=== PATIENT | female | born 1945 | race Caucasian/White ===

== ENCOUNTER 2020-07-04 12:36 | Day surgery (SDC) | payer MEDICARE ==
[~2020-07-04] VITALS: Ht 162.6 cm; Wt 66.3 kg
[~2020-07-04 12:36] MED LIST: ALBU3IS INH; ALBU90I INH; ALBU90OI INH; ALBU90OI6 INH; ALLO100 PO; ALPR.25 PO; AMOCLA875 PO; ANORO ELLIPTA1 EAC1 INH; ASPI325 PO; ASPI81EC; ATROVENT HFA12.9 GM; CHOLESTEROL MED; EPIPEN 2-P0.3 MG/0.1 IM; ESOM20 PO; EZET10; FLUSAL2505 INH; FURO40; FURO40 PO; HYDURE500 PO; LISI5 PO; METF500C PO; METO100ER; METO100ER PO; METO25ER; NITROGLYCERIN0.4 M1 SL; OMEG1CAP30 PO; POTCHL20ER PO; Percocet 5-3251 EACH PO; ROSU10TA; ROSU10TA PO; ROSU5 PO; RXONDA4ODT MM; RXOXYACE PO; SIMV40 PO; SPIR25; SPIR25 PO; TIOT18 IH; VALS80
--- NOTE | 2020-07-04 14:57 | NUR ---
07/04/20 1457 ALMA BARTLETT 24 ML NACL USED FOR INJECTION OF POLYP
== END 2020-07-04 14:38 | disposition home or self-care (01) ==
LOC: ORSCSDS 12:36
PROVIDERS: Surgery
PROC: 0DBL8ZX Excision of Transverse Colon, Via Natural or Artificial Opening Endoscopic, Diagnostic (ICD-10-PCS; principal; 2020-07-04 13:45)
PROC: 3E0H8GC Introduction of Other Therapeutic Substance into Lower GI, Via Natural or Artificial Opening Endoscopic (ICD-10-PCS; principal; 2020-07-04 13:45)
DX: Z12.11 Encounter for screening for malignant neoplasm of colon (principal); D12.3 Benign neoplasm of transverse colon; K57.30 Diverticulosis of large intestine without perforation or abscess without bleeding; K64.8 Other hemorrhoids; F17.210 Nicotine dependence, cigarettes, uncomplicated; E78.5 Hyperlipidemia, unspecified; K21.9 Gastro-esophageal reflux disease without esophagitis; I25.10 Atherosclerotic heart disease of native coronary artery without angina pectoris; I10 Essential (primary) hypertension; J44.9 Chronic obstructive pulmonary disease, unspecified; Z79.899 Other long term (current) drug therapy
CPT/HCPCS: 88305; J2704; J7120

== ENCOUNTER 2021-01-19 08:03 | Day surgery (SDC) | payer MEDICARE | END 2021-01-19 23:52 | disposition home or self-care (01) | LOC: MOI US 08:03 → MOI MAM 08:45 → MOI US 23:52 | DX: N64.89 Other specified disorders of breast (principal) | CPT/HCPCS: 19083; 77065; 88305; A4648; G0279 ==

== ENCOUNTER 2023-03-27 10:34 | Emergency (ER) | payer MEDICARE ==
[~2023-03-27] VITALS: Ht 162.6 cm; Wt 54.4 kg
[2023-03-27 11:34] LABS: BASOPHILS ABSOLUTE AUTO 0.06 K/mm3 (0.00-0.23); BASOPHILS PERCENT AUTO 1 % (0-2); EOSINOPHILS ABSOLUTE AUTO 0.01 K/mm3 (0.00-0.68); EOSINOPHILS PERCENT AUTO 0 % (0-6); Hematocrit 35.2 % (33.0-51.0); Hemoglobin 12.1 g/dL (11.5-16.0); IMMATURE GRAN ABSOLUTE AUTO 0.05 K/mm3 (0.00-0.10); IMMATURE GRAN PERCENT AUTO 1 % (0-1); LYMPHOCYTES PERCENT AUTO 17 % (21-46); MONOCYTES ABSOLUTE AUTO 0.45 K/mm3 (0.16-1.47); MONOCYTES PERCENT AUTO 6 % (4-13); Mean Corpuscular HGB 40.7 pg (26.0-34.0); Mean Corpuscular HGB Conc 34.4 g/dL (31.5-36.5); Mean Corpuscular Volume 119 fL (80-100); Mean Platelet Volume 8.1 fL (9.1-12.4); NEUTROPHILS ABSOLUTE AUTO 5.36 K/mm3 (1.96-9.15); NEUTROPHILS PERCENT AUTO 75 % (41-73); Platelet Count 379 K/mm3 (150-400); RDW Coefficient Variation 13.9 % (11.7-14.2); RDW Standard Deviation 60.8 fL (35.1-46.3); Red Blood Cell Count 2.97 M/mm3 (3.80-5.20); White Blood Cell Count 7.13 K/mm3 (4.00-11.30)
[2023-03-27 11:56] LABS: Albumin, Blood 1.8 g/dL (3.4-5.0); Albumin/Globulin Ratio 0.4 (0.8-1.8); Bilirubin, Total 0.7 mg/dL (0.1-1.0); Bun/Creatinine Ratio 13.4 (12.0-20.0); Calcium, Blood 8.3 mg/dL (8.5-10.1); Creatinine, Blood 0.67 mg/dL (0.40-1.00); Globulin, Blood 4.7 g/dL (2.2-4.0); Potassium, Blood 2.9 mmol/L (3.5-5.5); Total Protein, Blood 6.5 g/dL (6.4-8.2)
[2023-03-27 14:38] LABS: Source, Urine Clean Catch
[2023-03-27 14:53] LABS: Appearance, Urine Clear (Clear); Bilirubin, Urine Neg (Neg); Blood, Urine Neg (Neg); Color, Urine Amber (P-Yellow); Glucose Qualitative, Urine Neg (Neg); Ketones, Urine Neg (Neg); Leukocyte Esterase, Urine 1+ (Neg); Nitrite, Urine Neg (Neg); Protein, Urine 1+ (Neg); Urobilinogen, Urine 1+ (Normal)
[2023-03-27 15:08] LABS: Bacteria Few /hpf; Red Blood Cells, Urine 0-2 /hpf (0-2); Squamous Epithelial Cells Few /hpf (Few)
[2023-03-27 16:30] VITALS: BP 134/119
[2023-03-27] MEDS ORDERED: ONDA4ODT SL (19:42)
[2023-03-27 22:36] LABS: Adenovirus F 40/41 Not Detected (NOT DETECT); Astrovirus Not Detected (NOT DETECT); Campylobacter Sp Not Detected (NOT DETECT); Cryptosporidium Not Detected (NOT DETECT); Cyclospora Cayetanensis Not Detected (NOT DETECT); E. Coli O157 Not Detected (NOT DETECT); Entamoeba Histolytica Not Detected (NOT DETECT); Enteroaggregative E. coli-EAEC Not Detected (NOT DETECT); Enteropathogenic E. coli-EPEC Not Detected (NOT DETECT); Enterotoxigenic E. coli-ETEC Not Detected (NOT DETECT); Giardia Lamblia Not Detected (NOT DETECT); Norovirus GI/GII Not Detected (NOT DETECT); Plesiomonas Shigelloides Not Detected (NOT DETECT); Rotavirus A Not Detected (NOT DETECT); Salmonella Sp Not Detected (NOT DETECT); Sapovirus Not Detected (NOT DETECT); Shiga Toxin-prod E. coli-STEC Not Detected (NOT DETECT); Shigella/Enteroin E. coli-EIEC Not Detected (NOT DETECT); Vibrio Cholerae Not Detected (NOT DETECT); Vibrio Sp Not Detected (NOT DETECT); Yersinia Enterocolitica Not Detected (NOT DETECT)
== END 2023-03-27 19:50 | disposition home or self-care (01) ==
LOC: ER 10:34
PROVIDERS: Emergency Medicine; Physician Assistant
DX: R10.11 Right upper quadrant pain (principal); E87.6 Hypokalemia; E46 Unspecified protein-calorie malnutrition; E88.09 Other disorders of plasma-protein metabolism, not elsewhere classified; R19.7 Diarrhea, unspecified; I11.0 Hypertensive heart disease with heart failure; I50.9 Heart failure, unspecified; F17.200 Nicotine dependence, unspecified, uncomplicated; Z88.1 Allergy status to other antibiotic agents; Z91.040 Latex allergy status; Z88.5 Allergy status to narcotic agent; Z88.8 Allergy status to other drugs, medicaments and biological substances; Z91.048 Other nonmedicinal substance allergy status; Z79.899 Other long term (current) drug therapy; Z79.82 Long term (current) use of aspirin
CPT/HCPCS: 74177; 80053; 81001; 83690; 85025; 87086; 87324; 87507; 96361; 96374-59; 99284-25; A9270; J7120; Q9967

== ENCOUNTER 2023-04-29 17:21 | Inpatient (IN) | payer MEDICARE ==
[~2023-04-29] VITALS: Ht 162.6 cm; Wt 51.6 kg
[~2023-04-29 17:21] MED LIST changes: +ONDA4ODT SL
[2023-04-29 18:10] LABS: BASOPHILS ABSOLUTE AUTO 0.04 K/mm3 (0.00-0.23); BASOPHILS PERCENT AUTO 1 % (0-2); EOSINOPHILS ABSOLUTE AUTO 0.03 K/mm3 (0.00-0.68); EOSINOPHILS PERCENT AUTO 1 % (0-6); Hematocrit 29.3 % (33.0-51.0); Hemoglobin 9.7 g/dL (11.5-16.0); IMMATURE GRAN ABSOLUTE AUTO 0.02 K/mm3 (0.00-0.10); IMMATURE GRAN PERCENT AUTO 1 % (0-1); LYMPHOCYTES ABSOLUTE AUTO 1.77 K/mm3 (0.84-5.20); LYMPHOCYTES PERCENT AUTO 44 % (21-46); MONOCYTES ABSOLUTE AUTO 0.45 K/mm3 (0.16-1.47); MONOCYTES PERCENT AUTO 11 % (4-13); Mean Corpuscular HGB 41.5 pg (26.0-34.0); Mean Corpuscular HGB Conc 33.1 g/dL (31.5-36.5); Mean Corpuscular Volume 125 fL (80-100); Mean Platelet Volume 8.7 fL (9.1-12.4); NEUTROPHILS ABSOLUTE AUTO 1.73 K/mm3 (1.96-9.15); NEUTROPHILS PERCENT AUTO 43 % (41-73); Platelet Count 375 K/mm3 (150-400); RDW Coefficient Variation 17.2 % (11.7-14.2); RDW Standard Deviation 78.2 fL (35.1-46.3); Red Blood Cell Count 2.34 M/mm3 (3.80-5.20); White Blood Cell Count 4.04 K/mm3 (4.00-11.30)
[2023-04-29 18:33] LABS: Albumin, Blood 2.2 g/dL (3.4-5.0); Albumin/Globulin Ratio 0.5 (0.8-1.8); Bilirubin, Total 0.4 mg/dL (0.1-1.0); Creatinine, Blood 0.66 mg/dL (0.40-1.00); Globulin, Blood 4.6 g/dL (2.2-4.0); Potassium, Blood 3.7 mmol/L (3.5-5.5); Total Protein, Blood 6.8 g/dL (6.4-8.2)
[2023-04-29] MEDS ORDERED: OMEP20ER PO (18:47)
[2023-04-30 00:20] LABS: International Normalized Ratio 1.04; Prothrombin Time Results 10.9 Sec (9.7-11.5)
[2023-04-30 03:10] VITALS: BP 123/84
--- NOTE | 2023-04-30 06:46 | NUR ---
SHIFT SUMMARY/ARRIVAL TO PCU NOTE RECEIVED REPORT FROM HEAD OF ACQUISITIONS SERENE ALMEIDA, PT SHORTLY ARRIVED TO PCU 3 ~0300 THIS AM. ACCOMPANIED BY PT'S SON-IN-LAW, PT WAS ABLE TO TRANSFER FROM ER [facility] [place] TO PCU BED WITH MINIMAL ASSISTANCE. A/Ox3 AND COOPERATIVE WITH CARE. CAN BE FORGETFUL AT TIMES, BUT IS ABLE TO ANSWER QUESTIONS APPROPRIATELY. CARDIAC, REMAINED IN SR-ST 80-100'S WITH NO C/O CP OR PRESSURE T/O THE NIGHT. SBP HAS BEEN STABLE RANGING 100-120'S. DENIES DIZZINESS WITH AMBULATION. RESPIRATORY, MAINTAINS SPO2 >95% ON RA WITH NO C/O SOB WHILE AT REST. MILD DYSPNEA NOTED WITH EXERTION, BUT PT RECOVERS WELL. GI/, ABLE TO AMBULATE TO [facility], VOIDING CLEAR/YELLOW URINE. NO BM SINCE ARRIVAL TO PCU. STOOL SAMPLE AWAITING TO BE COLLECTED. BS PRESENT IN ALL QUADRANTS WITH NO C/O ABD TENDERNESS. HEPARIN gtt IS BEING MANAGED BY PHARMACY AND HAS BEEN INFUSING ORDERED VIA EMAR. IR CONSULT CONDUCTED, ANSWERSING SERVICE NOTIFIED PER ORDERS. ASSESSED PT FOR RISKS OF ANY IGNITION SOURCES WELL BEHAVIORS FOR INCREASED RISKS OF FIRE DANGER. PT EDUCATED ON COMMON SOURCES OF IGNITION WELL NEED TO KEEP A SAFE ENVIRONMENT. PT VOICED UNDERSTANDING. NO NEW ORDERS AT THIS TIME, WILL REPORT TO ONCOMING RN. BRANDEN POST OF THIS NOTE.
[2023-04-30 07:30] VITALS: BP 119/77
[2023-04-30 09:10] LABS: Stool Occult Blood Guaiac 1 Neg (Neg)
[2023-04-30 09:27] LABS: Hemoglobin 8.7 g/dL (11.5-16.0); Mean Corpuscular HGB 41.2 pg (26.0-34.0); Mean Corpuscular HGB Conc 32.2 g/dL (31.5-36.5); Mean Corpuscular Volume 128 fL (80-100); Mean Platelet Volume 8.9 fL (9.1-12.4); Platelet Count 380 K/mm3 (150-400); RDW Coefficient Variation 17.6 % (11.7-14.2); RDW Standard Deviation 81.9 fL (35.1-46.3); Red Blood Cell Count 2.11 M/mm3 (3.80-5.20); White Blood Cell Count 2.89 K/mm3 (4.00-11.30)
[2023-04-30 09:47] LABS: BAND PERCENT MAN 2 % (0-8); BASOPHILS PERCENT MAN 0 % (0-2); EOSINOPHILS ABSOLUTE MAN 0.02 K/mm3 (0.00-0.68); EOSINOPHILS PERCENT MAN 1 % (0-6); LYMPHOCYTES ABSOLUTE MAN 1.24 K/mm3 (0.84-5.20); LYMPHOCYTES PERCENT MAN 43 % (21-46); METAMYELOCYTE ABSOLUTE MAN 0.02 K/mm3 (0.00-0.00); METAMYELOCYTE PERCENT MAN 1 % (0-0); MONOCYTES PERCENT MAN 7 % (4-13); NEUTROPHILS ABSOLUTE MAN 1.38 K/mm3 (1.96-9.15); SEG NEUTROPHILS PERCENT MAN 46 % (41-73); TOTAL CELLS COUNTED 100
[2023-04-30 09:58] LABS: Albumin, Blood 1.9 g/dL (3.4-5.0); Albumin/Globulin Ratio 0.5 (0.8-1.8); Bilirubin, Total 0.2 mg/dL (0.1-1.0); Bun/Creatinine Ratio 6.6 (12.0-20.0); Calcium, Blood 7.9 mg/dL (8.5-10.1); Creatinine, Blood 0.6 mg/dL (0.40-1.00); Globulin, Blood 4.1 g/dL (2.2-4.0); Potassium, Blood 3.2 mmol/L (3.5-5.5)
[2023-04-30 10:44] VITALS: BP 105/69
[2023-04-30 11:24] LABS: Adenovirus F 40/41 Not Detected (NOT DETECT); Astrovirus Not Detected (NOT DETECT); Campylobacter Sp Not Detected (NOT DETECT); Cryptosporidium Not Detected (NOT DETECT); Cyclospora Cayetanensis Not Detected (NOT DETECT); E. Coli O157 Not Detected (NOT DETECT); Entamoeba Histolytica Not Detected (NOT DETECT); Enteroaggregative E. coli-EAEC Not Detected (NOT DETECT); Enteropathogenic E. coli-EPEC Not Detected (NOT DETECT); Enterotoxigenic E. coli-ETEC Not Detected (NOT DETECT); Giardia Lamblia Not Detected (NOT DETECT); Norovirus GI/GII Not Detected (NOT DETECT); Plesiomonas Shigelloides Not Detected (NOT DETECT); Rotavirus A Not Detected (NOT DETECT); Salmonella Sp Not Detected (NOT DETECT); Sapovirus Not Detected (NOT DETECT); Shiga Toxin-prod E. coli-STEC Not Detected (NOT DETECT); Shigella/Enteroin E. coli-EIEC Not Detected (NOT DETECT); Vibrio Cholerae Not Detected (NOT DETECT); Vibrio Sp Not Detected (NOT DETECT); Yersinia Enterocolitica Not Detected (NOT DETECT)
--- NOTE | 2023-04-30 11:39 | NUR ---
NOTED C DIFF POSITIVE. DR. PASCUAL HERE TO CONSENT PT FOR PROCEDURE. NPO FROM NOW.
[2023-04-30 15:52] LABS: Hematocrit 27.5 % (33.0-51.0); Hemoglobin 9.1 g/dL (11.5-16.0)
[2023-04-30 16:05] VITALS: BP 112/60
--- NOTE | 2023-04-30 16:07 | NUR ---
Call to son-in-law Justus to update family that the pt's procedure will probably be at 1830 this evening.
--- NOTE | 2023-04-30 18:24 | NUR ---
Pt returned to the room via bed from [facility]. She is alert, oriented to person, place, and some ongoing events. Appropriate in conversation, but also somewhat forgetful. Bilateral popliteal venous access sites noted to be without bleeding nor swelling nor bruising. Flowstasis devices are present bilaterally. Per Dr. Peterson, they can be removed in the morning. Assisted to use the bed [place] to void and to eat her dinner. Pharmacy was notified of pt's return to room and heparin gtt restarted at the prior rate, per pharmacist at this time. Pt has no c/o pain nor discomfort. She is eating with good appetite. Vital signs are stable. Family member Justus was notified by phone.
--- NOTE | 2023-04-30 21:25 | NUR ---
AT SHIFT CHANGE WHEN MEETING PATIENT, SHE WAS PLEASANT AND COOPERATIVE BUT FORGETFUL. SHE WAS UNAWARE THAT SHE WAS SPENDING THE NIGHT IN THE HOSPITAL. BED ALARM WAS PLACED FOR SAFETY. AROUND 193 PATIENT SET OFF BED ALARM TRYING TO GET OUT OF BED TO USE THE BATHROOM AND WAS PULLING AT HER IV'S AND TELEMETRY. EXPLAINED TO THE PATIENT THAT IT IS UNSAFE FOR HER TO BE GETTING UP WITHOUT HELP AND ATTEMPTED TO ASSIST HER TO THE BEDSIDE COMMODE. PATIENT SAT ON THE COMMODE AND THEN ATTEMPTED TO WALK TOWARDS THE DOOR. EXPLAINED TO THE PATIENT AGAIN THAT IT IS DANGEROUS FOR HER TO WALK SHE HAD JUST HAD A PROCEDURE AND HAD DEVICES ON HER LEGS TO KEEP HER FROM BLEEDING. PATIENT CONTINUED STARTED YELLING AND STARTED TRYING TO LEAVE. THIS RN CALLED FOR ASSISTANCE. PATIENT AGREED TO SIT ON THE SIDE OF THE BED BUT INSISTING THAT SHE WANTS TO GO HOME. PATIENT DOES NOT BELIEVE THAT SHE IS IN THE HOSPITAL BUT DOESN'T KNOW WHERE SHE IS. FINISH OFF OPERATOR, AND NURSING LEGAL PROCESS SPECIALIST ALSO SPOKE WITH THE PATIENT. HELPED THE PATIENT TO CALL HER FAMILY AND HER SON IN LAW AGREED TO COME SEE THE PATIENT. CONTACTED REGULATORY AUDITOR RESIDENT, DR MCMAHON, TO NOTIFY HER OF THE SITUATION AND ASKED HER FOR SOMETHING TO HELP THE PATIENT CALM DOWN. NO ORDERS GIVEN. HELPED THE PATIENT TO USE THE COMMODE, PATIENT INSISTED ON GETTING DRESSED AND TOOK HER TELEMETRY OFF REFUSING TO WAIT FOR HER SON IN LAW TO COME. PATIENT'S SON IN LAW ARRIVED AROUND 2100 TO HELP CALM THE PATIENT DOWN. PATIENT DID NOT BELIEVE ANYTHING HE WAS SAYING. TRYING TO PULL AT IV'S. FINISH OFF OPERATORPLACIDO CALLED DR MCMAHON AGAIN EXPLAINING HOW THE SITUATION WAS UNSAFE AND AGAIN ASKED FOR SOMETHING TO HELP THE PATIENT CALM DOWN.
[2023-04-30 21:46] VITALS: BP 111/57
--- NOTE | 2023-04-30 22:35 | NUR ---
PHYSICIAN COMMUNICATION CONTACTED MEDICAL TYPIST RESIDENT, DR MCMAHON, TO NOTIFY HER THAT THE PATEINT HAS LAID BACK DOWN AND IS CURRENTLY RESTING BUT STILL REFUSING TO ALLOW THIS RN TO PLACE TELEMETRY BACK ON THE PATIENT. ALSO NOTIFIED HER THAT THE PATIENT'S SON IN LAW SAID THAT THE PATIENT WOUD NOT BE WILLING TO TAKE ORAL MEDICATIONS AT THIS TIME AND IS AFRAID THAT THE PATIENT WILL WAKE UP MORE CONFUSED AND COMBATIVE THE PATIENT HAS BEEN "SPEAKING AGRESSIVELY TO HIM" AND REQUESTED THAT THE PATIENT BE SWITCHED FROM AN ORAL MEDICATION THAT WILL HELP HER STAY CALM AND SLEEP THROUGH THE NIGHT TO SOMETHING IV.
[2023-04-30 23:43] VITALS: BP 130/81
[2023-05-01 01:30] LABS: BASOPHILS ABSOLUTE AUTO 0.04 K/mm3 (0.00-0.23); BASOPHILS PERCENT AUTO 1 % (0-2); EOSINOPHILS ABSOLUTE AUTO 0.02 K/mm3 (0.00-0.68); EOSINOPHILS PERCENT AUTO 1 % (0-6); Hematocrit 27.6 % (33.0-51.0); IMMATURE GRAN ABSOLUTE AUTO 0.03 K/mm3 (0.00-0.10); IMMATURE GRAN PERCENT AUTO 1 % (0-1); LYMPHOCYTES ABSOLUTE AUTO 1.24 K/mm3 (0.84-5.20); LYMPHOCYTES PERCENT AUTO 31 % (21-46); MONOCYTES ABSOLUTE AUTO 0.44 K/mm3 (0.16-1.47); MONOCYTES PERCENT AUTO 11 % (4-13); Mean Corpuscular HGB 42.3 pg (26.0-34.0); Mean Corpuscular HGB Conc 32.6 g/dL (31.5-36.5); Mean Corpuscular Volume 130 fL (80-100); Mean Platelet Volume 8.9 fL (9.1-12.4); NEUTROPHILS ABSOLUTE AUTO 2.24 K/mm3 (1.96-9.15); NEUTROPHILS PERCENT AUTO 56 % (41-73); Platelet Count 350 K/mm3 (150-400); RDW Coefficient Variation 17.2 % (11.7-14.2); RDW Standard Deviation 82.3 fL (35.1-46.3); Red Blood Cell Count 2.13 M/mm3 (3.80-5.20); White Blood Cell Count 4.01 K/mm3 (4.00-11.30)
[2023-05-01 01:53] LABS: Albumin/Globulin Ratio 0.5 (0.8-1.8); Bilirubin, Total 0.3 mg/dL (0.1-1.0); Bun/Creatinine Ratio 8.4 (12.0-20.0); Calcium, Blood 8.3 mg/dL (8.5-10.1); Creatinine, Blood 0.71 mg/dL (0.40-1.00); Magnesium, Blood 1.7 mg/dL (1.6-2.4); Phosphorus, Blood 2.9 mg/dL (2.5-4.9); Potassium, Blood 3.5 mmol/L (3.5-5.5)
[2023-05-01 03:21] VITALS: BP 126/75
--- NOTE | 2023-05-01 03:52 | NUR ---
PHYSICIAN COMMUNICATION CONTACTED NUTRITION AIDES TEACHER RESIDENT, DR MCMAHON, AT 2300 TO NOTIFY HER THAT THE PATIENT HAD WOKEN UP AND WAS COMBATIVE AND ATTEMPTING TO PULL HER IV OUT/RIP THE TUBING APART DESPITE RECEIVING A DOSE OF IM ZYPREXA. DR MCMAHON APPROVED THE USE OF WRIST RESTRAINTS. CALLED DR MCMAHON AGAIN AT 0350 TO NOTIFY HER THAT THE PATIENT WAS NO LONGER ACTING AGRESSIVELY BUT STILL REQUIRING ALMOST CONSTANT SUPERVISION DESPITE BEING IN WRIST RESTRAINTS BECAUSE THE PATIENT WILL NOT LEAVE HER LEGS IN BED AND THAT THE PATIENT MANAGED TO PULL THE FLOW STASIS DEVICE OFF HER LEFT LEG AND THAT FORTUNATELY IT WAS STILL CONNECTED TO THE STRINGS AND WAS ABLE TO BE REPLACED TO APPLY PRESSURE AND A NEW DRESSIGN WAS PLACED OVER IT. ASKED DR MCMAHON IF THE PATIENT COULD BE PLACED IN FOUR POINT RESTRAINTS OR BE SEDATED. DR MCMAHON SAID SHE WOULD CONSULT WITH DR GOEL AND INPUT ORDERS.
--- NOTE | 2023-05-01 05:49 | NUR ---
PHYSICIAN COMMUNICATION CONTACTED DINKEY ENGINE FIRER/FIREMAN RESIDENT, DR MCMAHON, TO NOTIFY HER THAT THE LAST DOSE OF ZYPREXA THAT WAS ADMINISTERED TO THE PATIENT WAS NOT EFFECTIVE AND THAT THIS RN WITNESSED THE PATIENT PULL HER LEFT LEG UP AND TWIST HER UPPER BODY IN ORDER TO REACH DOWN AND INTENTIONALLY PULL THE DRESSING OVER HER VENOUS STASIS DEVICE OFF. DR MCMAHON OKAYED 4 POINT SOFT RESTRAINTS.
[2023-05-01 08:16] VITALS: BP 125/75
--- NOTE | 2023-05-01 08:38 | NUR ---
0700 Bedside report received from LAXMI Golden. Noted some bruising proximal and distal to the left popliteal space, no swelling. Pt also has some tenderness at the area. No active bleeding. Flostasis devices removed without any difficulty, and the area was cleansed with chlorihexidine and gauze dressing applied and secured with coban.
--- NOTE | 2023-05-01 09:06 | NUR ---
Assisted with IV pole to ambulate to the bathroom for BM after breakfast. No difficulty with the activity. She is oriented to person, place, and following directions. She is still confused somewhat, continues to think that she was in the hospital for an eye operation, and forgetful of events over the past 48 hours. She is cooperative. Bed alarm is on and son in law Justus at the bedside.
--- NOTE | 2023-05-01 12:38 | NUR ---
Ongoing confusion. Pt is frequently setting off the chair alarm. She continues to think that she is in the eye doctor's office and needs to go home, or needs to get to the hospital, despite frequent reminders and reorientation.
--- NOTE | 2023-05-01 14:49 | NUR ---
Spoke with Primary RN Tatyana and discussed case. Pt remains confused. Son was at bedside all night and has left. Pt sitting in chair upon arrival. Pt A&OX2. Pt pleasantly confused and engages in same story over and over again each time adding a slightly different element to the story. Difficult to have therapeutic conversation and needs redirecting. Continued supportive visit. Palliative Care will remain available
--- NOTE | 2023-05-01 15:43 | NUR ---
Pt repeatedly standing up in the room alerted staff with chair alarm. Insistent that she needs to go home. Attempts to reassure and reorient are unsuccessful. She insisted on calling her son in law Justus, but is still insistent that she must go home. Attempting to leave the room without using the walker and at times wobbly on her feet. Refusing to stay in room, or sit in wheelchair or use the walker. She did walk with direct support staff member member in the hallway around by ICU, and then returned to PCU. Dr. Salas in unit, talked with her. She insists that she needs to go home. Remains quite confused, and states she isn't willing to take any medications. New prn orders received for agitation/combativeness.
--- NOTE | 2023-05-01 16:27 | NUR ---
Pt is sitting in wheelchair in hallway, refusing to go back to her room. Supervised by PCT at this time.
--- NOTE | 2023-05-01 17:17 | NUR ---
Telephone report given to LAXMI Ledbetter. Pt was agreeable to take her Vancomycin, eliquis, and zyprexa at this time. She wa taken up to room 348 by wheelchair.
[2023-05-01 17:26] VITALS: BP 127/47
--- NOTE | 2023-05-01 18:40 | NUR ---
SHIFT SUMMARY; PATIENT ARRIVED TO MED FLOOR VIA WHEEL CHAIR AT 1715. PLEASANT AFFECT. CONVERSES WITH STAFF. VERY COOPERATIVE WITH CARE. UP TO BATHROOM WITHOUT ASSIST. PATIENT REMINDED TO USE CALL LIGHT TO NOTIFY STAFF OF HER NEEDS INCLUDING GOING TO BATHROOM. PHONE CALL TO HER NELI AMAYA PRIOR TO THIS RN LEAVING UNIT AT END OF SHIFT.
[2023-05-01 20:09] VITALS: BP 105/65
--- NOTE | 2023-05-01 22:24 | NUR ---
REPORT RECEIVED VERIFIED PT A/O X 1-2 CAN BE REDIRECTED EASILY BUT WILL NOT REST NOR SIT DOWN, PT STEADY ON FEET WHEN STAND BY ASSIST,PT HAD BM LOOKED NORMAL NO BLOOD NOTED. ENC TO REST AND LAY IN BED. @2130 PT IN SEPARATE ROOM ALARM WENT OFF AND WAS ASSISTING TO BED WHEN SECOND ALARM WENT OFF IN CURRENT PT ROOM. PT FELL WHILE ATTEMPTING TO GO IN BATHROOM NO OBVIOUS INJURY NOTE, PT STATED SHE WAS FINE BUT WOULD PROBABLY BE SORE IN THE MORNING. I AMBULATED WITH PT IN ROOM AND SAW NOT S/S OF INJURY. ASSISTED PT BACK IN BED AND PT STATES SHE WOULD NOT GET OOB WITHOUT HELP. BED ALARM IN PLACE, PT LAYING QUIETLY IN BED
[2023-05-01 23:26] VITALS: BP 105/65
[2023-05-02 00:06] VITALS: BP 103/58
--- NOTE | 2023-05-02 02:17 | NUR ---
@0120 PT ATTEMPTED TO GET OUT OF BED, WHEN ALARM SOUNDED PT SCREAMED AND SEEMED TO GET TRIGGERED INTO [place]. PT GREW AGGRESSIVE AND SCREAMED OUT FOR FAMILY AND WOULDNT STOP YELLING. PT WAS ENC TO RETURN TO BED WITHOUT BUT MET RESISTENCE. TO PROTECT PT WE CARFULLY HELPED HER TO THE BED ALL THE TIME SHE WAS SCREAMING AND HITTING AND BAUDILIO WAS APPLIED, HALDOL WAS THEN GIVEN TO CALM PT. WILL CONT TO MONITOR PT AT BEDSIDE
[2023-05-02 05:21] VITALS: BP 140/75
--- NOTE | 2023-05-02 05:36 | NUR ---
AFTER STRUGGLING FOR SEVERAL HOURS PT FINALLY ASLEEP VITAL SIGNS COULD BE DONT ALL WNL. HAD BM NO BLEEDING NOTED LINEN CHANGED PT PRATEEK WELL STILL SLEEPING
--- NOTE | 2023-05-02 07:29 | NUR ---
PT BETTER APOLOGIZED FOR BEHAVIOR, ASSISTED TO [facility] WHERE SHE HADF A SOFT BM NO BLOOD NOTED, BAUDILIO TIDE TO BED
[2023-05-02 08:23] VITALS: BP 117/61
[2023-05-02 08:31] LABS: BASOPHILS ABSOLUTE AUTO 0.04 K/mm3 (0.00-0.23); BASOPHILS PERCENT AUTO 1 % (0-2); EOSINOPHILS ABSOLUTE AUTO 0.02 K/mm3 (0.00-0.68); EOSINOPHILS PERCENT AUTO 1 % (0-6); Hemoglobin 7.4 g/dL (11.5-16.0); IMMATURE GRAN ABSOLUTE AUTO 0.02 K/mm3 (0.00-0.10); IMMATURE GRAN PERCENT AUTO 1 % (0-1); LYMPHOCYTES ABSOLUTE AUTO 1.02 K/mm3 (0.84-5.20); LYMPHOCYTES PERCENT AUTO 26 % (21-46); MONOCYTES ABSOLUTE AUTO 0.48 K/mm3 (0.16-1.47); MONOCYTES PERCENT AUTO 12 % (4-13); Mean Corpuscular HGB 41.3 pg (26.0-34.0); Mean Corpuscular HGB Conc 32.2 g/dL (31.5-36.5); Mean Corpuscular Volume 129 fL (80-100); Mean Platelet Volume 8.8 fL (9.1-12.4); NEUTROPHILS ABSOLUTE AUTO 2.29 K/mm3 (1.96-9.15); NEUTROPHILS PERCENT AUTO 59 % (41-73); Platelet Count 249 K/mm3 (150-400); RDW Coefficient Variation 18.2 % (11.7-14.2); RDW Standard Deviation 84.3 fL (35.1-46.3); Red Blood Cell Count 1.79 M/mm3 (3.80-5.20); White Blood Cell Count 3.87 K/mm3 (4.00-11.30)
[2023-05-02 09:07] LABS: Albumin, Blood 1.9 g/dL (3.4-5.0); Anion Gap 2 mmol/L (6-16); Blood Urea Nitrogen 6 mg/dL (8-24); Bun/Creatinine Ratio 7.5 (12.0-20.0); CO2, Blood 27 mmol/L (21-32); Calcium, Blood 8.1 mg/dL (8.5-10.1); Chloride, Blood 113 mmol/L (98-108); Glomerular Filtration Rate 75 (60-); Glucose, Blood 108 mg/dL (70-99); Magnesium, Blood 2.3 mg/dL (1.6-2.4); Potassium, Blood 3.7 mmol/L (3.5-5.5); Sodium, Blood 142 mmol/L (136-145)
[2023-05-02 11:47] LABS: BASOPHILS ABSOLUTE AUTO 0.03 K/mm3 (0.00-0.23); BASOPHILS PERCENT AUTO 1 % (0-2); EOSINOPHILS ABSOLUTE AUTO 0.05 K/mm3 (0.00-0.68); EOSINOPHILS PERCENT AUTO 1 % (0-6); Hematocrit 26.3 % (33.0-51.0); Hemoglobin 8.5 g/dL (11.5-16.0); IMMATURE GRAN ABSOLUTE AUTO 0.02 K/mm3 (0.00-0.10); IMMATURE GRAN PERCENT AUTO 1 % (0-1); LYMPHOCYTES ABSOLUTE AUTO 1.25 K/mm3 (0.84-5.20); LYMPHOCYTES PERCENT AUTO 33 % (21-46); MONOCYTES ABSOLUTE AUTO 0.56 K/mm3 (0.16-1.47); MONOCYTES PERCENT AUTO 15 % (4-13); Mean Corpuscular HGB 41.7 pg (26.0-34.0); Mean Corpuscular HGB Conc 32.3 g/dL (31.5-36.5); Mean Corpuscular Volume 129 fL (80-100); NEUTROPHILS ABSOLUTE AUTO 1.83 K/mm3 (1.96-9.15); NEUTROPHILS PERCENT AUTO 49 % (41-73); Platelet Count 318 K/mm3 (150-400); RDW Coefficient Variation 18.4 % (11.7-14.2); RDW Standard Deviation 87.1 fL (35.1-46.3); Red Blood Cell Count 2.04 M/mm3 (3.80-5.20); White Blood Cell Count 3.74 K/mm3 (4.00-11.30)
[2023-05-02 12:59] LABS: BAND PERCENT MAN 2 % (0-8); BASOPHILS PERCENT MAN 0 % (0-2); EOSINOPHILS ABSOLUTE MAN 0.03 K/mm3 (0.00-0.68); EOSINOPHILS PERCENT MAN 1 % (0-6); LYMPHOCYTES ABSOLUTE MAN 1.12 K/mm3 (0.84-5.20); LYMPHOCYTES PERCENT MAN 30 % (21-46); METAMYELOCYTE ABSOLUTE MAN 0.07 K/mm3 (0.00-0.00); METAMYELOCYTE PERCENT MAN 2 % (0-0); MONOCYTES ABSOLUTE MAN 0.18 K/mm3 (0.16-1.47); MONOCYTES PERCENT MAN 5 % (4-13); NEUTROPHILS ABSOLUTE MAN 2.31 K/mm3 (1.96-9.15); SEG NEUTROPHILS PERCENT MAN 60 % (41-73); TOTAL CELLS COUNTED 100
[2023-05-02] MEDS ORDERED: ELIQUIS5 M2 PO ×2 (14:13→14:15)
[2023-05-02] MEDS ORDERED: BANATROL PLUS1 EAC1 PO (14:15)
[2023-05-02] MEDS ORDERED: VANCOCIN HCL125 MG PO (14:17)
[2023-05-02 18:06] VITALS: BP 133/69
--- NOTE | 2023-05-02 18:42 | NUR ---
SHIFT SUMMARY; PATIENTS FAMILY HAS APPEALED HER DISCHARGE. EFFIE SECTION WEAVER CAME TO BEDSIDE TO SPEAK WITH DAUGHTER AND PATIENT. FAMILY SPEAKS WITH THIS RN AND CONSENSUS WAS THAT THEY DID NOT FEEL THERE WAS A SAFE DISCHARGE PLAN SINCE PATIENT HAD BEEN IN RESTRAINTS LAST NOC AND THE DAY BEFORE
[2023-05-02 19:41] VITALS: BP 103/53
[2023-05-03 03:03] VITALS: BP 90/52
--- NOTE | 2023-05-03 07:13 | NUR ---
SHIFT SUMMARY PATIENT WITH NO ACUTE EVENTS DURING SHIFT. SHE WAS COOPERATIVE AND TOOK ALL HER MEDICATIONS DIRECTED. SON MONIQUE STATES THIS MORNING HE WILL COME IN AROUND 8AM WITH PLANS TO TAKE HER HOME ONCE THE DR CLEARS HER LONG SHE IS STILL DOING WELL. BED IN LOW POSITION, BED ALARM ON, CALL LIGHT IN REACH.
[2023-05-03 07:48] VITALS: BP 109/69
--- NOTE | 2023-05-03 10:33 | NUR ---
DISCHARGE NOTE MS BONILLA WAS DISCHARGED HOME AT 1025HRS VIA WHEELCHAIR WITH HER SON MONIQUE. SHE WAS INFORMED THIS MORNING THAT HER WAS ADMITTED OVERNIGHT AND VISITED HIM IN HIS HOSPITAL ROOM. SHE HAS BEEN CALM THIS MORNING, FORGETFUL BUT ABLE TO FOLLOW INSTRUCTIONS. NO PIV TO REMOVE. STABLE ON HER FEET. PT AND HER SON VERBALISED UNDERSTANDING OF DISCHARGE INSTRUCTIONS, WRITTEN AND VERBAL.
== END 2023-05-03 10:32 | disposition home or self-care (01) | DRG 270 ==
LOC: ER 17:21 → PCU 23:32 → MEDS 05-01 17:19 → ENPENDDIS 05-02 11:18 → MEDS 05-03 09:00
PROVIDERS: Emergency Medicine; Family Medicine; Hospitalist; Student in an Organized Health Care Education/Training Program; ADMIT Student in an Organized Health Care Education/Training Program
PROC: 06C03ZZ Extirpation of Matter from Inferior Vena Cava, Percutaneous Approach (ICD-10-PCS; principal; 2023-04-29)
PROC: 047L3ZZ Dilation of Left Femoral Artery, Percutaneous Approach (ICD-10-PCS; principal; 2023-04-29)
PROC: 04CD3ZZ Extirpation of Matter from Left Common Iliac Artery, Percutaneous Approach (ICD-10-PCS; 2023-04-29)
PROC: 047J3ZZ Dilation of Left External Iliac Artery, Percutaneous Approach (ICD-10-PCS; 2023-04-29)
PROC: 04CL3ZZ Extirpation of Matter from Left Femoral Artery, Percutaneous Approach (ICD-10-PCS; 2023-04-29)
PROC: 04CN3ZZ Extirpation of Matter from Left Popliteal Artery, Percutaneous Approach (ICD-10-PCS; 2023-04-29)
PROC: 047D3ZZ Dilation of Left Common Iliac Artery, Percutaneous Approach (ICD-10-PCS; 2023-04-29)
DX: I82.423 Acute embolism and thrombosis of iliac vein, bilateral (principal); I26.09 Other pulmonary embolism with acute cor pulmonale; A04.71 Enterocolitis due to Clostridium difficile, recurrent; Z68.1 Body mass index [BMI] 19.9 or less, adult; F05 Delirium due to known physiological condition; K21.9 Gastro-esophageal reflux disease without esophagitis; I11.0 Hypertensive heart disease with heart failure; I50.9 Heart failure, unspecified; E03.9 Hypothyroidism, unspecified; F03.90 Unspecified dementia, unspecified severity, without behavioral disturbance, psychotic disturbance, mood disturbance, and anxiety; I25.10 Atherosclerotic heart disease of native coronary artery without angina pectoris; J44.9 Chronic obstructive pulmonary disease, unspecified; D50.0 Iron deficiency anemia secondary to blood loss (chronic); R62.7 Adult failure to thrive; N80.9 Endometriosis, unspecified; F17.200 Nicotine dependence, unspecified, uncomplicated; Z95.5 Presence of coronary angioplasty implant and graft; Z88.1 Allergy status to other antibiotic agents; Z88.5 Allergy status to narcotic agent; Z88.8 Allergy status to other drugs, medicaments and biological substances; Z91.048 Other nonmedicinal substance allergy status; Z91.040 Latex allergy status; Z79.899 Other long term (current) drug therapy; Z90.710 Acquired absence of both cervix and uterus; Z98.890 Other specified postprocedural states; Z90.722 Acquired absence of ovaries, bilateral
CPT/HCPCS: 36415; 71260; 74177; 76937; 80053; 80069; 82272; 82607; 82746; 83735; 83880; 84100; 84443; 84484; 85014; 85018; 85025; 85520; 85610; 85730; 86850; 86900; 86901; 87324; 87507; 94760; 96361; 96365-59; 96375-59; 97110; 97116; 97162; 97530; 99152; 99153; 99285-25; A9270; C1725; C1757; C1769; C1887; C1894; C8929; J1630; J1644; J2250; J3010; J3475; J3480; J7030; J7040; J7050; Q9957; Q9967

== ENCOUNTER → 2023-06-30 | Outpatient (CLI) | payer MEDICARE ==
[~2023-06-30] MED LIST changes: +BANATROL PLUS1 EAC1 PO; +ELIQUIS5 M2 PO; +OMEP20ER PO; +VANCOCIN HCL125 MG PO
== END ==
LOC: LAB SHORT 07:33 → LAB 07:33
DX: L60.2 Onychogryphosis (principal); B35.1 Tinea unguium
CPT/HCPCS: 88305; 88312

== ENCOUNTER 2024-01-24 09:29 | Emergency (ER) | payer MEDICARE ==
[~2024-01-24] VITALS: Ht 160 cm; Wt 54.4 kg
[~2024-01-24 09:29] MED LIST changes: +Aspir 8181 MG PO; +CENTRUM SILVER1 EAC2 PO; +FAMO20 PO; +FUROSEMIDE20 MG PO; +GLUC500 PO; +HYDURE500; +Hydroxyzine HCl50 MG PO; +PANT40 PO; +POTA10T PO; +REMERON30 M9 PO; +ZYRTEC10 M2 PO
[2024-01-24] MEDS ORDERED: NS 1,000 ML IV SCH (09:55)
[2024-01-24 10:26] LABS: BASOPHILS ABSOLUTE AUTO 0.04 K/mm3 (0.00-0.23); BASOPHILS PERCENT AUTO 1 % (0-2); EOSINOPHILS ABSOLUTE AUTO 0.03 K/mm3 (0.00-0.68); EOSINOPHILS PERCENT AUTO 0 % (0-6); Hemoglobin 11.6 g/dL (11.5-16.0); IMMATURE GRAN ABSOLUTE AUTO 0.09 K/mm3 (0.00-0.10); IMMATURE GRAN PERCENT AUTO 1 % (0-1); LYMPHOCYTES ABSOLUTE AUTO 0.86 K/mm3 (0.84-5.20); LYMPHOCYTES PERCENT AUTO 11 % (21-46); MONOCYTES ABSOLUTE AUTO 0.83 K/mm3 (0.16-1.47); MONOCYTES PERCENT AUTO 11 % (4-13); NEUTROPHILS ABSOLUTE AUTO 5.97 K/mm3 (1.96-9.15); NEUTROPHILS PERCENT AUTO 76 % (41-73); Platelet Count 641 K/mm3 (150-400); White Blood Cell Count 7.82 K/mm3 (4.00-11.30)
[2024-01-24 10:28] LABS: Hematocrit 34.8 % (33.0-51.0); Mean Corpuscular HGB 37.7 pg (26.0-34.0); Mean Corpuscular HGB Conc 33.3 g/dL (31.5-36.5); Mean Corpuscular Volume 113 fL (80-100); Red Blood Cell Count 3.08 M/mm3 (3.80-5.20)
[2024-01-24 10:43] LABS: Albumin, Blood 1.8 g/dL (3.4-5.0); Albumin/Globulin Ratio 0.4 (0.8-1.8); Bilirubin, Total 0.3 mg/dL (0.1-1.0); Bun/Creatinine Ratio 19.3 (12.0-20.0); Creatinine, Blood 0.57 mg/dL (0.40-1.00); Globulin, Blood 4.7 g/dL (2.2-4.0); Magnesium, Blood 1.9 mg/dL (1.6-2.4); Potassium, Blood 4.2 mmol/L (3.5-5.5); Total Protein, Blood 6.5 g/dL (6.4-8.2)
[2024-01-24 11:30] VITALS: BP 122/61
== END 2024-01-24 13:20 | disposition home or self-care (01) ==
LOC: ER 09:29
PROVIDERS: Emergency Medicine
DX: R53.1 Weakness (principal); K21.9 Gastro-esophageal reflux disease without esophagitis; I11.9 Hypertensive heart disease without heart failure; I50.9 Heart failure, unspecified; I48.91 Unspecified atrial fibrillation; F17.200 Nicotine dependence, unspecified, uncomplicated; W18.30XA Fall on same level, unspecified, initial encounter; Z79.899 Other long term (current) drug therapy; Z79.82 Long term (current) use of aspirin; Z88.1 Allergy status to other antibiotic agents; Z91.040 Latex allergy status; Z88.5 Allergy status to narcotic agent; Z88.8 Allergy status to other drugs, medicaments and biological substances; Z91.048 Other nonmedicinal substance allergy status
CPT/HCPCS: 80053; 83735; 85025; 96360; 99283-25; J7030

== ENCOUNTER 2024-02-07 14:21 | Emergency (ER) | payer MEDICARE ==
[~2024-02-07] VITALS: Ht 167.6 cm; Wt 53.5 kg
[2024-02-07 16:03] LABS: Albumin, Blood 1.4 g/dL (3.4-5.0); Albumin/Globulin Ratio 0.3 (0.8-1.8); BASOPHILS ABSOLUTE AUTO 0.02 K/mm3 (0.00-0.23); BASOPHILS PERCENT AUTO 1 % (0-2); Bilirubin, Total 0.2 mg/dL (0.1-1.0); Bun/Creatinine Ratio 27.8 (12.0-20.0); Calcium, Blood 7.7 mg/dL (8.5-10.1); Creatinine, Blood 0.58 mg/dL (0.40-1.00); EOSINOPHILS PERCENT AUTO 3 % (0-6); Globulin, Blood 4.3 g/dL (2.2-4.0); Hemoglobin 10.4 g/dL (11.5-16.0); IMMATURE GRAN ABSOLUTE AUTO 0.06 K/mm3 (0.00-0.10); IMMATURE GRAN PERCENT AUTO 2 % (0-1); LYMPHOCYTES ABSOLUTE AUTO 1.26 K/mm3 (0.84-5.20); LYMPHOCYTES PERCENT AUTO 35 % (21-46); MONOCYTES ABSOLUTE AUTO 0.57 K/mm3 (0.16-1.47); MONOCYTES PERCENT AUTO 16 % (4-13); Mean Platelet Volume 8.6 fL (9.1-12.4); NEUTROPHILS ABSOLUTE AUTO 1.58 K/mm3 (1.96-9.15); NEUTROPHILS PERCENT AUTO 44 % (41-73); NRBC ABSOLUTE 0.04 K/mm3 (0.00-0.02); NRBC Auto 1.1 /100 WBC (0.0-0.2); Platelet Count 436 K/mm3 (150-400); Potassium, Blood 4.5 mmol/L (3.5-5.5); Total Protein, Blood 5.7 g/dL (6.4-8.2); White Blood Cell Count 3.59 K/mm3 (4.00-11.30)
[2024-02-07 16:04] LABS: Hematocrit 31.4 % (33.0-51.0); Mean Corpuscular HGB 37.5 pg (26.0-34.0); Mean Corpuscular HGB Conc 33.1 g/dL (31.5-36.5); Mean Corpuscular Volume 113 fL (80-100); Red Blood Cell Count 2.77 M/mm3 (3.80-5.20)
[2024-02-07] MEDS ORDERED: NS 1,000 ML IV SCH ×2 (17:15)
[2024-02-07 21:30] VITALS: BP 145/75
== END 2024-02-07 21:43 | disposition home or self-care (01) ==
LOC: ER 14:21
PROVIDERS: Emergency Medicine
DX: S06.5XAA Traumatic subdural hemorrhage with loss of consciousness status unknown, initial encounter (principal); W18.30XA Fall on same level, unspecified, initial encounter; Z88.1 Allergy status to other antibiotic agents; Z88.8 Allergy status to other drugs, medicaments and biological substances; Z91.040 Latex allergy status; Z88.5 Allergy status to narcotic agent; Z79.899 Other long term (current) drug therapy; I11.0 Hypertensive heart disease with heart failure; I50.9 Heart failure, unspecified; K21.9 Gastro-esophageal reflux disease without esophagitis; J44.9 Chronic obstructive pulmonary disease, unspecified; F17.200 Nicotine dependence, unspecified, uncomplicated
CPT/HCPCS: 70450; 71045; 80053; 85025; 93005; 93010; 96360; 99284-25; J7030; P9612

== ENCOUNTER 2024-02-13 10:11 | Inpatient (IN) | payer MEDICARE ==
[~2024-02-13] VITALS: Ht 165.1 cm; Wt 51.2 kg
[2024-02-13] VITALS (7 sets, daily range): BP systolic 83–147; BP diastolic 48–76
[~2024-02-13 10:11] MED LIST changes: +PANT20 PO; -PANT40 PO
[2024-02-13] MEDS ORDERED: DABI75 PO (10:34)
[2024-02-13] MEDS ORDERED: SUCR1 PO (10:35)
[2024-02-13 10:40] LABS: Hemoglobin 9.1 g/dL (11.5-16.0); Mean Platelet Volume 8.4 fL (9.1-12.4); NRBC ABSOLUTE 0.02 K/mm3 (0.00-0.02); NRBC Auto 0.3 /100 WBC (0.0-0.2); Platelet Count 526 K/mm3 (150-400); White Blood Cell Count 6.07 K/mm3 (4.00-11.30)
[2024-02-13 10:43] LABS: Hematocrit 26.8 % (33.0-51.0); Mean Corpuscular HGB 38.6 pg (26.0-34.0); Mean Corpuscular Volume 114 fL (80-100); Red Blood Cell Count 2.36 M/mm3 (3.80-5.20)
[2024-02-13 10:54] LABS: International Normalized Ratio 1.38; Prothrombin Time Results 14.4 Sec (9.7-11.5)
[2024-02-13 10:58] LABS: Albumin, Blood 1.4 g/dL (3.4-5.0); Albumin/Globulin Ratio 0.4 (0.8-1.8); Bilirubin, Total 0.4 mg/dL (0.1-1.0); Bun/Creatinine Ratio 19.3 (12.0-20.0); Calcium, Blood 7.5 mg/dL (8.5-10.1); Creatinine, Blood 0.62 mg/dL (0.40-1.00); Globulin, Blood 3.9 g/dL (2.2-4.0); Potassium, Blood 3.9 mmol/L (3.5-5.5); Total Protein, Blood 5.3 g/dL (6.4-8.2)
[2024-02-13 11:01] LABS: BAND PERCENT MAN 5 % (0-8); BASOPHILS PERCENT MAN 0 % (0-2); EOSINOPHILS ABSOLUTE MAN 0.06 K/mm3 (0.00-0.68); EOSINOPHILS PERCENT MAN 1 % (0-6); LYMPHOCYTES ABSOLUTE MAN 0.66 K/mm3 (0.84-5.20); LYMPHOCYTES PERCENT MAN 11 % (21-46); MONOCYTES PERCENT MAN 5 % (4-13); NEUTROPHILS ABSOLUTE MAN 5.03 K/mm3 (1.96-9.15); SEG NEUTROPHILS PERCENT MAN 78 % (41-73); TOTAL CELLS COUNTED 100
[2024-02-13] MEDS ORDERED: LACT PO (15:32)
--- NOTE | 2024-02-13 15:37 | NUR ---
PCU ADMIT PT BROUGHT TO PCU-18 BY LISANDRO FROM ER @ APPROX 1440. PT A&O X3. PT LAUGHING WHEN ASKING PT DATE. PT FORGETFUL TO SOME INFORMATION. PT UNABLE TO RECALL MEDICATIONS ACTIVELY TAKING. [facility] MEDICATION LIST WITH PT. WHEN ASKING PT ABOUT BLOODY BMs, PT STATES, "I DON'T KNOW. THAT'S WHAT THEY TELL ME. I DIDN'T SEE THEM." REPORT OF PT HAVING A BM W/ BLOOD AT [facility] & A BM W/ DARK RED BLOOD IN THE ER. PT DENIES HAVING SEEN EITHER BM. PT DENYING PAIN/DISCOMFORT. PT STATING "WHEN YOU GET OLD LIKE ME YOU WIND UP W/ ALL KINDS OF PROBLEMS. PT VSS. SPO2 > 92% ON RA. PT REPORTS HAVING A NC AT HOME THAT SHE SOMETIMES USES WHEN NEEDED BUT DENIES KNOWING HOW MANY L/MIN. PT REPORTS HAVING A BIPAP & A CPAP AT HOME, BUT THEN GETS CONFUSED & STATES "I THINK I HAVE BOTH, BUT I DON'T KNOW." UNKOWN WHEN PT LAST WORE. MONITOR SHOWING SR, HR 80s. ATTENDS IN PLACE. SKIN W/ BRUISING SCATTERED T/O & BRUISING NOTED TO COCCYX WELL. PT IN BED W/ BED ALARM ON.
[2024-02-13] MEDS ORDERED: Pantoprazole Sodium 40 MG Injection IV SCH (16:30)
[2024-02-13 16:32] LABS: Hemoglobin 10.5 g/dL (11.5-16.0); Mean Platelet Volume 8.6 fL (9.1-12.4); NRBC ABSOLUTE 0.03 K/mm3 (0.00-0.02); NRBC Auto 0.5 /100 WBC (0.0-0.2); Platelet Count 385 K/mm3 (150-400); White Blood Cell Count 6.46 K/mm3 (4.00-11.30)
[2024-02-13 16:36] LABS: Hematocrit 31.6 % (33.0-51.0); Mean Corpuscular HGB 38.5 pg (26.0-34.0); Mean Corpuscular HGB Conc 33.2 g/dL (31.5-36.5); Mean Corpuscular Volume 116 fL (80-100); Red Blood Cell Count 2.73 M/mm3 (3.80-5.20)
[2024-02-13 17:06] LABS: Percent Saturation 17.9 % (15.0-50.0)
--- NOTE | 2024-02-13 17:30 | NUR ---
END OF SHIFT PT CONTINUES TO BE A&O X3, VERY FOGETFUL. PT DAUGHTER AT BEDSIDE, REPORTING PT IS MORE FORGETFUL THAN NORMAL. PT DAUGHTER DENYING PT HAVING A DX OF DEMENTIA, BUT REPORTS PT HAS BEEN FORGETFUL. PT HAVING TO BE REDIRECTED TO CURRENT SITUATION. PT TALKING FREQUENTLY ABOUT RECENT LOSS OF IN MAY. PT REPORTS BEING STRESSED W/ WHAT TO DO WITH HIS BELONGINGS. PT VSS. SPO2 > 92% ON RA. MONITOR SHOWING NSR. PT W/ NO SIGNS OF BLEEDING SINCE ARRIVAL TO UNIT.
[2024-02-13] MEDS ORDERED: NS 1,000 ML IV ONE (21:05)
--- NOTE | 2024-02-13 21:05 | NUR ---
PATIENT UPDATE THIS RN ASSUMED CARE OF PATIENT AT 1900. PT A&O X2-3. FORGETFUL AT TIMES BUT COOPERATIVE. ABLE TO TEACH BACK HOW TO USE CALL LIGHT. THIS RN NOTED PT'S SBP 80-90'S. CALL PLACED TO MD RAMOS REGARDING BLOOD PRESSURE. MD WITH ORDER FOR 1L NS BOLUS. ORDERS PLACED. THIS RN WILL GIVE PER EMAR. PT WITH BED ALARM ON. BED IN LOWEST POSITION AND CALL LIGHT WITHIN REACH.
[2024-02-14] VITALS (33 sets, daily range): BP systolic 58–118; BP diastolic 44–76
[2024-02-14 01:24] LABS: Hemoglobin 8.7 g/dL (11.5-16.0)
[2024-02-14 01:54] LABS: Hematocrit 25.5 % (33.0-51.0)
[2024-02-14] MEDS ORDERED: NS 1,000 ML IV SCH ×2 (02:40→08:35)
--- NOTE | 2024-02-14 03:11 | NUR ---
PATIENT UPDATE MD RAMOS TO PCU TO DISCUSS CONTINUED LOW BP'S WITH SBP 80-90'S AND MAP IN THE HIGH 50'S TO LOW 60'S. PT WITH NOTED SMALL-MEDIUM LOOSE RUST COLORED BM. HGB >7 AT THIS TIME. REPEAT ON AM LABS. PT FINISHED NS BOLUS. ORDER FOR 1L NS AT 200MLS/HR. ORDER FOR SCD'S. NS INFUSING PER EMAR. NO FURTHER CHANGES FROM PREVIOUS ASSESSMENT.
--- NOTE | 2024-02-14 04:27 | NUR ---
SHIFT SUMMARY SEE PREVIOUS NOTES. PT NOTED TO HAVE INCREASED CONFUSION WHEN WAKING UP. PT ATTEMPTED TO USE RESTROOM AND SET BED ALARM OFF. PT IS ABLE TO BE REORIENTED BUT CONTINUES TO HAVE MOMENTS OF CONFUSION/FORGETFULNESS, BUT IS COOPERATIVE WITH CARE. PT WITH HX OF DEMENTIA. UP TO BSC WITH 2P ASSIST. SR WITH HR 60-70'S. BP CONTINUES TO BE SOFT WITH SBP 80-100'S. MAP AT THIS TIME >65. INFUSING NS PER EMAR. PT WITH X1 RUST COLORED STOOL DURING THIS SHIFT. NO OTHER OVERT SIGNS OF BLEEDING NOTED. DENIES ABDOMINAL PAIN AND N/V. BED IN LOWEST POSIION, BED ALARM ON, CALL LIGHT WITHIN REACH. THIS RN WILL REPORT TO ONCOMING DAYSHIFT RN.
[2024-02-14 05:54] LABS: Hemoglobin 8.3 g/dL (11.5-16.0); Mean Platelet Volume 8.3 fL (9.1-12.4); Platelet Count 441 K/mm3 (150-400); White Blood Cell Count 4.59 K/mm3 (4.00-11.30)
--- NOTE | 2024-02-14 06:05 | NUR ---
LABS RESULTS AM LABS RESULTED ON THIS PATIENT THAT WERE MIS-LABELED THIS PATIENTS BLOOD. THIS RN NOTIFIED LAB OF MISTAKE. PREVIOUS RESULTS CANCELED AND BLOOD BEING DRAWN BY LAB NOW. DISREGARD RESULTS FOR 409 ON 02/13
[2024-02-14 06:15] LABS: Albumin, Blood 1.2 g/dL (3.4-5.0); Anion Gap 9 mmol/L (3-11); Blood Urea Nitrogen 7 mg/dL (8-24); Bun/Creatinine Ratio 14.9 (12.0-20.0); CO2, Blood 23 mmol/L (21-32); Calcium, Blood 7.5 mg/dL (8.5-10.1); Chloride, Blood 114 mmol/L (98-108); Creatinine, Blood 0.47 mg/dL (0.40-1.00); Glomerular Filtration Rate 97 (60-); Glucose, Blood 83 mg/dL (70-99); Magnesium, Blood 1.9 mg/dL (1.6-2.4); Phosphorus, Blood 3.4 mg/dL (2.5-4.9); Potassium, Blood 3.6 mmol/L (3.5-5.5); Sodium, Blood 142 mmol/L (136-145)
[2024-02-14 06:17] LABS: Hematocrit 25.2 % (33.0-51.0); Mean Corpuscular HGB 38.6 pg (26.0-34.0); Mean Corpuscular HGB Conc 32.9 g/dL (31.5-36.5); Mean Corpuscular Volume 117 fL (80-100); Red Blood Cell Count 2.15 M/mm3 (3.80-5.20)
[2024-02-14] MEDS ORDERED: NS 500 ML IV ONE (10:20)
--- NOTE | 2024-02-14 10:33 | NUR ---
UPDATE / LOW BP PT A&O TO SELF, MONTH/YR. PT DISORIENTED TO PLACE & HAVING TO BE REMINDED OF DETAILS/CIRCUMSTANCES. PT BP LOW W/ MAPS 50s-60s. MD NOGUERA AWARE W/ ORDER FOR NS GTT @ 75 MLS/HR. BP STILL LOW. CALL TO MD NOGUERA W/ ORDER FOR 500 ML NS BOLUS. BOLUS INFUSING NOW. PT DENYING LIGHTHEADEDNESS/DIZZINESS. PT STATING "I HAVEN'T DONE ANYTHING. IF I GET UP I GET DIZZY, BUT I HAVEN'T GOTTEN UP." PT ADVISED TO REMAIN IN BED AT THIS TIME." PT AGREEABLE. BED ALARM ON. REPORT OF SMALL AMOUNT OF RED BLOOD NOTED W/ PT VOID THIS AM. MONITOR SHOWING SR, HR 60s. SPO2 > 92% ON RA.
[2024-02-14 12:06] LABS: Hemoglobin 9.1 g/dL (11.5-16.0)
[2024-02-14 12:23] LABS: Hematocrit 27.4 % (33.0-51.0)
--- NOTE | 2024-02-14 15:56 | NUR ---
MET WITH MILAGRO AND HER DAUGHTER ANJUM. PROVIDED THERAPUTIC CONVERSATION AND MILAGRO RELAYED HER WORKING HISTORY AND HISTORY WITH FAMILY. SHE HAD A FEW MOMENTS OF CONFUSION, SHE THOUGHT [facility], BUT REORIENTED EASILY. SHE REPORTED THAT HER MEMORY ISN'T SHARP IT USED TO BE AND THAT SHE HAS BEEN IN AND OUT OF THE HOSPITAL SO MUCH OVER THE LAST TWO YEARS THAT SHE CANT KEEP THINGS STRAIGHT. WE DISCUSSED CODE STATUS AND PATIENT AND DAUGHTER AGREED THAT MILAGRO SHOULD BE CHANGED TO A DNR STATUS. DISCUSSED WITH PROVIDER AND CODE STATUS CHANGED. ANJUM AND MILAGRO DISCUSSED WHAT LIFE WOULD LOOK LIKE AFTER THE HOSPITAL STAY MILAGRO RELAYS THAT SHE DOES NOT WANT PEOPLE IN HER HOME. SHE IS AGREEABLE TO GO TO SNF AFTER THIS HOSPITAL STAY. HER GOAL IS TO GET HOME AND STAY OUT OF THE HOSPITAL.
[2024-02-14 17:20] LABS: Hemoglobin 8.2 g/dL (11.5-16.0)
[2024-02-14 17:21] LABS: Hematocrit 24.3 % (33.0-51.0)
--- NOTE | 2024-02-14 18:22 | NUR ---
END OF SHIFT PT A&O TO SELF, MONTH/YR. PT FORGETFUL, REQUIRING REMINDING/REORIENTING INTERMITTENTLY T/O SHIFT. PT BP LOW. PT ASYMPTOMATIC. 500 ML NS BOLUS GIVEN X1 PER ORDERS THIS SHIFT. CONTINUOUS NS GTT INFUSING PER ORDERS. BP IMPROVED. VSS. MONITOR SHOWING SR, HR 60s-80s. SPO2 > 92% ON RA. PT W/ 1 SMALL PASSING OF RED BLOOD REPORTED WHEN PT VOIDED.
[2024-02-14] MEDS ORDERED: Sodium, Potassium,Mag Sulfates 354 ML PO SCH (20:30)
[2024-02-14] MEDS ORDERED: Ondansetron HCl 2 MG / ML 2ML Vial IV PRN (23:35)
[2024-02-15] VITALS (27 sets, daily range): BP systolic 82–130; BP diastolic 51–104
--- NOTE | 2024-02-15 04:51 | NUR ---
SHIFT SUMMARY THIS RN ASSUMED CARE OF PATIENT AT 1900. PT A&O X3-4, FORGETFUL AT TIMES. BP CONTINUES TO BE SOFT AT TIMES BUT IMPROVES WHEN PT WAKES UP. BUCKNER TO BEDSIDE TO DISCUSS PLAN FOR UPPER AND LOWER SCOPE. ORDER FOR BOWEL PREP, GIVEN NOC DOSE, WILL GIVE AM DOSE PER EMAR. PT WITH N/V AFTER PREP, MD RAMOS WITH ORDER FOR ZOFRAN, N/V IMPROVED. NS INFUSING PER EMAR. BED IN LOWEST POSITION AND CALL LIGHT WITHIN REACH. THIS RN WILL REPORT TO ONCOMING DAYSHIFT RN.
[2024-02-15 08:51] LABS: Hemoglobin 9.2 g/dL (11.5-16.0); Mean Platelet Volume 8.2 fL (9.1-12.4); NRBC ABSOLUTE 0.02 K/mm3 (0.00-0.02); NRBC Auto 0.3 /100 WBC (0.0-0.2); Platelet Count 501 K/mm3 (150-400); White Blood Cell Count 6.58 K/mm3 (4.00-11.30)
[2024-02-15 08:52] LABS: Hematocrit 27.4 % (33.0-51.0); Mean Corpuscular HGB 38.7 pg (26.0-34.0); Mean Corpuscular HGB Conc 33.6 g/dL (31.5-36.5); Mean Corpuscular Volume 115 fL (80-100); Red Blood Cell Count 2.38 M/mm3 (3.80-5.20)
[2024-02-15 09:12] LABS: Bun/Creatinine Ratio 6.8 (12.0-20.0); Calcium, Blood 7.8 mg/dL (8.5-10.1); Creatinine, Blood 0.44 mg/dL (0.40-1.00); Potassium, Blood 3.2 mmol/L (3.5-5.5)
[2024-02-15] MEDS ORDERED: Lactated Ringer's 1,000 ML IV SCH (10:45)
[2024-02-15] MEDS ORDERED: propofoL 20 ML IV ONE (10:52)
[2024-02-15 11:13] LABS: Hemoglobin 7.7 g/dL (11.5-16.0)
--- NOTE | 2024-02-15 11:18 | NUR ---
PT HAS 20G IV TO LEFT FOREARM THAT FLUSHES WELL AND FLOWS TO GRAVITY.
[2024-02-15] MEDS ORDERED: Potassium Chloride 40 MEQ in NS 250 ML IV ONE (11:20)
--- NOTE | 2024-02-15 11:25 | NUR ---
PT TAKEN TO UPPER AND KOWER GI SCOPE PROCEDURE AT THIS TIME
[2024-02-15 11:37] LABS: Hematocrit 22.8 % (33.0-51.0)
--- NOTE | 2024-02-15 11:51 | NUR ---
02/15/24 1151 Silvestre Danielson History, Chart, Medications and Allergies reviewed before start of procedure.MONITOR INTACT WITH CONTINUOUS PULSE OXIMETRY, CONTINUOUS END TITAL CO2, AND INTERMITTENT BLOOD PRESSURE.3-LEAD EKG REVIEWED WITH PHYSICIAN PRIOR TO START OF PROCEDURE.O2 VIA POM INTACT THROUGHOUT SEDATION/PROCEDURE.See Anesthesia record.
[2024-02-15] MEDS ORDERED: Ondansetron HCl 2 MG / ML 2ML Vial ONE (14:10)
--- NOTE | 2024-02-15 18:18 | NUR ---
PT SUMMARY PT UPPER AND LOWER GI SCOPE IS DONE, BIOPSY DONE ON SOME MASS THAT WAS FOUND ON THE LOWER GI PER REPORT. CT ABD DONE AWAITING TO RESULT. PT HAS BEEN RESTING SINCE AFTER THE SCOPE. VITALS HRR SR 80'S, SBP SOFT 90-100'S MAP >65, SATS ABOVE 95% ON RA, AFEBRILE. SOFT BP'S WHEN PT IS SLEEPING. PT DOES C/O DIZZINESS WHEM GETTING UP TO USE THE BEDSIDE COMMODE THEN GOES AWAY AT REST. NS RUNNING AT 75,LS/HR POTASSIUM WAS REPLACED WITH 40 MEQ IV POTASSIUM. NO DAUGHTER CAME IN TO VISIT AND WAS ABLE TO TALK TO DR BUCKNER ABOUT THE PLANS. NO OTHER ISSUES ECNOUNTERED AT THIS TIME, CALL LIGHTS IN REACH WILL REPORT TO ONCOMING SHIFT
--- NOTE | 2024-02-15 22:10 | NUR ---
ASSUMPTION OF CARE THIS RN ASSUMED CARE AT APPROX 1915. PATIENT ALERT AND ORIENTED X1-2. IS FORGETFUL TO DATE/TIME, CURRENT SITUATION. HX OF DEMENTIA - BED ALARM ON. TELEMETRY SHOWING SINUS 80s. BP STABLE, SBP 110s. BP SOFT WITH SLEEP. MAP >65 WHILE AWAKE. DENIES CHEST PAIN, PRESSURE. REPORTS THAT HER DIZZINESS WITH MOBILITY SEEMS TO BE IMPROVING. IVF INFUSING PER EMAR AT 75ML/HR. ON ROOM AIR, SATs >90%. RESPIRATIONS EVEN, UNLABORED. ABD NONTENDER, NORMOACTIVE BOWEL TONES X4. BM THIS EVENING - MEDIUM, LOOSE, BROWN IN COLOR. IS A ONE TO TWO PERSON ASSIST TO BSC DUE TO WEAKNESS, DIZZINESS. BEDBATH PERFORMED THIS EVENING. CALL LIGHT IN REACH.
[2024-02-16] VITALS (11 sets, daily range): BP systolic 92–129; BP diastolic 53–71
[2024-02-16 04:03] LABS: Hemoglobin 6.9 g/dL (11.5-16.0); Mean Platelet Volume 8.4 fL (9.1-12.4); Platelet Count 395 K/mm3 (150-400); White Blood Cell Count 5.79 K/mm3 (4.00-11.30)
[2024-02-16 04:07] LABS: Hematocrit 20.7 % (33.0-51.0); Mean Corpuscular HGB 38.5 pg (26.0-34.0); Mean Corpuscular HGB Conc 33.3 g/dL (31.5-36.5); Mean Corpuscular Volume 116 fL (80-100); Red Blood Cell Count 1.79 M/mm3 (3.80-5.20)
[2024-02-16 04:26] LABS: Albumin, Blood 1.2 g/dL (3.4-5.0); Anion Gap 7 mmol/L (3-11); Blood Urea Nitrogen 5 mg/dL (8-24); Bun/Creatinine Ratio 10.3 (12.0-20.0); CO2, Blood 24 mmol/L (21-32); Calcium, Blood 7.2 mg/dL (8.5-10.1); Chloride, Blood 115 mmol/L (98-108); Creatinine, Blood 0.48 mg/dL (0.40-1.00); Glomerular Filtration Rate 96 (60-); Glucose, Blood 88 mg/dL (70-99); Magnesium, Blood 1.6 mg/dL (1.6-2.4); Phosphorus, Blood 2.5 mg/dL (2.5-4.9); Potassium, Blood 3.4 mmol/L (3.5-5.5); Sodium, Blood 143 mmol/L (136-145)
[2024-02-16] MEDS ORDERED: NS 500 ML IV SCH (04:45)
--- NOTE | 2024-02-16 06:04 | NUR ---
SHIFT SUMMARY NO ACUTE EVENTS SINCE ASSUMPTION OF CARE. PATIENT SLEPT T/O NIGHT - EASILY AROUSABLE WITH VERBAL STIMULI. HX OF DEMENTIA - FORGETFUL. EASILY ORIENTED. BED ALARM ON. TELEMETRY SHOWING SINUS 80s. BP SOFT, SBP 90s-110s. MAP >65. IVF INFUSING PER EMAR. REMAINS ON ROOM AIR, SATs >90%. HEMOGLOBIN THIS MORNING, 6.9. MD CONTACTED, RECEIVED ORDER FOR 1U PRBC ADMINISTRATION. IV POWERGLIDE PLACED BY RHETT HAIR. IS INCONTINENT OF URINE, STOOL - CHANGING ATTENDS PRN TO KEEP C/D/I. NO DARK TARRY, RUST COLORED STOOLS NOTED. Q2H REPOSITIONING. CALL LIGHT IN REACH. WILL CONTINUE TO MONITOR AND REPORT TO ONCOMING RN.
[2024-02-16] MEDS ORDERED: Potassium Chloride 10 Meq Tablet SA PO ONE (09:30)
[2024-02-16 11:21] LABS: Hematocrit 28.7 % (33.0-51.0); Hemoglobin 9.3 g/dL (11.5-16.0)
[2024-02-16 15:19] LABS: Hematocrit 27.8 % (33.0-51.0); Hemoglobin 9.5 g/dL (11.5-16.0)
--- NOTE | 2024-02-16 16:46 | NUR ---
Pt goes by Timo. Met with pt, her daughter and Dr. Lim this afternoon. The patient is pleasant, alert and oriented with moments of confusion. Pt states she is only interested in conservative treatment and management, no matter if it's a bleed or cancer or "anything else." At this time, biopsy isn't back from colonoscopy, nor is the source of bleeding known. Will continue to check in with pt, and await further results before further discussions on goals of care.
--- NOTE | 2024-02-16 17:18 | NUR ---
PT SUMMARY; PT RECIEVED 1UPRBC THIS MORNING HGB WENT UP TO 9.5. PT STILL C/O DIZZINESS UPON STANDING, PT USES BEDSIDE COMMODE FOR TOILETING. VITALS HRR SR 90'S, SBP REMAINS SOFT WHEN ASLEEP WITH MAP >60, SBP WHEN AWAKE >100'S, SATS ABOVE 90% ON RA, AFEBRILE. PALLIATIVE CARE NURSE AND DR METZGER HAD A DISCUSSION IN THE ROOM WITH THE DAUGHTER ABOUT ADVANCE PLANNING. OF THIS TIME STILL WAITING FOR BIOPSY RESULT. NS RUNNING AT 75MLS/HR. PT STAYED IN BED T/O SHIFT, REMAINS ON CLEAR LIQUID DIET, NO OTHER ISSUES REPORTED CALL LIGHTS IN REACH WILL REPORT TO ONCOMING SHIFT
[2024-02-17 04:08] VITALS: BP 105/59
[2024-02-17 04:49] LABS: Hematocrit 26.4 % (33.0-51.0); Mean Corpuscular HGB 35.7 pg (26.0-34.0); Mean Corpuscular HGB Conc 34.1 g/dL (31.5-36.5); Mean Platelet Volume 8.4 fL (9.1-12.4); Platelet Count 273 K/mm3 (150-400); RDW Coefficient Variation 27.7 % (11.7-14.2); RDW Standard Deviation 94.5 fL (35.1-46.3); Red Blood Cell Count 2.52 M/mm3 (3.80-5.20); White Blood Cell Count 6.78 K/mm3 (4.00-11.30)
[2024-02-17 04:50] LABS: Mean Corpuscular Volume 105 fL (80-100)
[2024-02-17 05:03] LABS: Bun/Creatinine Ratio 13.8 (12.0-20.0); Creatinine, Blood 0.36 mg/dL (0.40-1.00)
--- NOTE | 2024-02-17 05:10 | NUR ---
1915 Assumed care of pt, javon report completed. Shift plan of care reviewed with pt, all questions answered. Pt with uneventful shift. Slept well, repeatedly denies pain. Pt does awaken mildly confused, requiring frequent re-orientation. Pt had episode of incontinence early in shift and chooses to sleep with Purewick, which seemed to work well for pt. AM labs drawn, will monitor for critical results. Pt taking clear liquid diet with diminished intake. Pt reports diminished appetite. Please see full assessment for additional details. No further complaints or concerns at this time, will continue to monitor.
[2024-02-17 09:53] VITALS: BP 110/62
[2024-02-17 11:17] VITALS: BP 113/72
[2024-02-17 16:21] VITALS: BP 110/55
[2024-02-17] MEDS ORDERED: Potassium Chloride 20 MEQ TabCR PO ONE (17:50)
--- NOTE | 2024-02-17 18:38 | NUR ---
shift summary Idalia turk, some mild confusion noted throughout the day. VS noted to have low grade temperature on and off throughout the day, she complained of feeling chilled throughout the day, and complained of upset stomach- requiring her PRN nausea medication. Up to chair with 1-2p staff assist, gait belt and FWW.
[2024-02-17 19:38] VITALS: BP 99/64
[2024-02-18 03:30] VITALS: BP 100/60
[2024-02-18 04:11] LABS: Hematocrit 28.9 % (33.0-51.0); Hemoglobin 9.6 g/dL (11.5-16.0); Mean Corpuscular HGB Conc 33.2 g/dL (31.5-36.5); Mean Corpuscular Volume 108 fL (80-100); Mean Platelet Volume 8.6 fL (9.1-12.4); Platelet Count 223 K/mm3 (150-400); RDW Coefficient Variation 27.2 % (11.7-14.2); RDW Standard Deviation 99.2 fL (35.1-46.3); Red Blood Cell Count 2.67 M/mm3 (3.80-5.20); White Blood Cell Count 7.53 K/mm3 (4.00-11.30)
[2024-02-18 04:33] LABS: Bun/Creatinine Ratio 14.2 (12.0-20.0); Calcium, Blood 7.1 mg/dL (8.5-10.1); Creatinine, Blood 0.42 mg/dL (0.40-1.00); Potassium, Blood 3.5 mmol/L (3.5-5.5)
--- NOTE | 2024-02-18 05:33 | NUR ---
1915 Assumed care of pt, bedside report completed. Shift plan of care reviewed with pt, all questions answered. Pt with uneventful shift, slept well per her report. Medicated for nausea once this shift, repeatedly denies pain. AM labs so improvement over prior H/H and Potassium. VSS have remained stable. Pt is continent while awake though has had incontinence of bladder occasionally when asleep. Pt reports this sometimes happens when she is especially tired. Continues baseline neuro status of A&O x 2, easily re-directed and follows directions well. Please see full assessment for additional details. No further complaints or concerns at this time, will continue to monitor.
[2024-02-18 05:47] LABS: BAND PERCENT MAN 8 % (0-8); BASOPHILS ABSOLUTE MAN 0.07 K/mm3 (0.00-0.23); BASOPHILS PERCENT MAN 1 % (0-2); EOSINOPHILS ABSOLUTE MAN 0.15 K/mm3 (0.00-0.68); EOSINOPHILS PERCENT MAN 2 % (0-6); LYMPHOCYTES ABSOLUTE MAN 0.75 K/mm3 (0.84-5.20); LYMPHOCYTES PERCENT MAN 10 % (21-46); MONOCYTES PERCENT MAN 8 % (4-13); NEUTROPHILS ABSOLUTE MAN 5.94 K/mm3 (1.96-9.15); SEG NEUTROPHILS PERCENT MAN 71 % (41-73); TOTAL CELLS COUNTED 100
[2024-02-18 07:51] VITALS: BP 105/59
[2024-02-18 11:15] VITALS: BP 108/68
[2024-02-18] MEDS ORDERED: Mag Hydrox/Al Hydrox/Simeth 18 ML,Lidocaine 2% Viscous Soln 9 ML,Atropine/Scopalam/Hyos... PO ONE (11:15)
[2024-02-18] MEDS ORDERED: Pantoprazole Sodium 20 MG Tab PO ONE (12:00)
[2024-02-18] MEDS ORDERED: FentaNYL Citrate 50 MCG/ML 2 ML Injection IV ONE (12:15)
[2024-02-18 15:37] VITALS: BP 105/59
--- NOTE | 2024-02-18 16:56 | NUR ---
shift summary Timo skipped breakfast today, ate 90% of her lunch. She worked with physical therapy today. During that, she experienced 7/10 chest pain- VS were stable. Chest pain work up was performed (MD varner), GI cocktail given, as well as IV pain medication- which brought her pain down to 6/10. Later in the afternoon Timo stated that her chest pain was still present from "yesterday" but stated that her pain was only at a 3/10, confusion remains present at times. Echo performed at bedside. Urine sample ordered, but not yet collected- will continue to monitor and encourage meals as tolerated.
[2024-02-18 19:36] VITALS: BP 113/68
[2024-02-19 05:05] VITALS: BP 104/57
[2024-02-19] MEDS ORDERED: Pantoprazole Sodium 20 MG Tab PO SCH (06:00)
--- NOTE | 2024-02-19 06:32 | NUR ---
1915 Assumed care of pt, bedside report completed. Shift plan of care reviewed with pt, all questions answered. Pt slept most of shift, and denied signficant concerns. appeared to be in good spirits though does report significant fatigue. Denies any further "chest pain" or gastric upset. Diminished appetite, though pt reports that is baseline for her. IVFs continued per order. Purewick in place overnight for overnight incontinence which pt reports is not unusual for her. Please see full assessment for additional details. No further comlaints or concerns at this time, will continue to monitor.
[2024-02-19] MEDS ORDERED: Magnesium Sulf 2 GM/Water 50ML 50 ML IV ONE (08:15)
[2024-02-19 08:19] VITALS: BP 150/60
[2024-02-19 08:39] LABS: Hematocrit 31.1 % (33.0-51.0); Hemoglobin 10.4 g/dL (11.5-16.0); Mean Corpuscular HGB 35.9 pg (26.0-34.0); Mean Corpuscular HGB Conc 33.4 g/dL (31.5-36.5); Mean Corpuscular Volume 107 fL (80-100); Mean Platelet Volume 8.7 fL (9.1-12.4); Platelet Count 228 K/mm3 (150-400); RDW Coefficient Variation 26.8 % (11.7-14.2); RDW Standard Deviation 98.6 fL (35.1-46.3); White Blood Cell Count 7.12 K/mm3 (4.00-11.30)
[2024-02-19 09:01] LABS: Bun/Creatinine Ratio 14.4 (12.0-20.0); Calcium, Blood 7.6 mg/dL (8.5-10.1); Creatinine, Blood 0.42 mg/dL (0.40-1.00); Potassium, Blood 3.1 mmol/L (3.5-5.5)
[2024-02-19 11:49] VITALS: BP 99/72
[2024-02-19] MEDS ORDERED: Potassium Chloride 20 MEQ TabCR PO ONE (13:00)
[2024-02-19 15:43] VITALS: BP 97/76
--- NOTE | 2024-02-19 17:12 | NUR ---
Met with pt and her daughter Car at bedside. The patient declined 2 times today to work with therapy, and this evening we had a goals of care meeting. Pt's albumin is 1.1 and she scores a 30-40% on both the PPS and KPS scales. They are electing for hospice eval and admit if indicated, and for pt to return home with her daughter. They do not have a preference of agency. Plan to discuss plan with hospitalist and CM in the am.
[2024-02-19] MEDS ORDERED: Acetaminophen 325 MG TABLET PO PRN (17:30)
--- NOTE | 2024-02-19 18:08 | NUR ---
Shift summary Pt had uneventful day- declined to work with physical therapist today. Incontinent of urine x1 in the bed today. Remained confused on and off throughout the day. Plan is to discharge tomorrow, home on hospice. Daughter aware of plan. IV magnesium replaced, IV fluids discontinued. Tolerating meals well. PO potassium given.
[2024-02-19 20:23] VITALS: BP 102/63
[2024-02-20] VITALS: BP 109/66
[2024-02-20 04:00] VITALS: BP 130/115
--- NOTE | 2024-02-20 05:12 | NUR ---
SHIFT SUMMARY PT A&O X2-3, COOPERATIVE WITH CARES. NO ACUTE EVENTS THIS SHIFT. VSS, AFEBRILE, SPO2 >92% RA. PT INCONTINENT OF BLADDER, PW IN PLACE. UP TO [facility] FOR BM WITH 1 PERSON ASSIST. PLAN TO D/C HOME FOR HOSPICE ON 02/19. PT IS RESTING QUIETLY IN BED, CALL LIGHT WITHIN REACH, BREATHING EVEN AND UNLABORED.
[2024-02-20 12:00] VITALS: BP 102/85
[2024-02-20 16:45] VITALS: BP 108/70
--- NOTE | 2024-02-20 17:45 | NUR ---
PT APPEARS TO BE SUNDOWNING AT THIS TIME. PT IS UPSET STATING THAT NO ONE HAS GIVEN HER FOOD TODAY, SHE IS REMINDED THAT HER I HAD READ HER MENU TO HER AND ASSISTED WITH THE SET UP ON HER BREAKFAST AND LUNCH TRAYS, SHE DOES NOT AGREE THAT HAPPENED. PT NO LONGER REMEMBERS SEEING THE HOSPITALIST TODAY OR CARE MANAGEMENT. SHE IS REMINDED THAT THE PLAN TO D/C HER HOME TO DAUGHTER'S HOUSE TOMORROW
[2024-02-20 19:43] VITALS: BP 102/53
[2024-02-20 23:23] VITALS: BP 99/53
[2024-02-21 03:18] VITALS: BP 104/61
--- NOTE | 2024-02-21 05:06 | NUR ---
SHIFT SUMMARY PT A&O X2-3, FORGETFUL AT TIMES, BUT EASILY REORIENTED AND REDIRECTABLE. COOPERATIVE WITH CARES. NO ACUTE EVENTS THIS SHIFT. VSS, AFEBRILE, SPO2 >92% RA. PT INCONTINENT OF BLADDER, PW IN PLACE. PLAN TO D/C HOME FOR HOSPICE ON 02/20. PT IS RESTING QUIETLY IN BED, CALL LIGHT WITHIN REACH, BREATHING EVEN AND UNLABORED.
[2024-02-21 08:00] VITALS: BP 119/78
--- NOTE | 2024-02-21 11:00 | NUR ---
powerglide removed intact and pressure dress. pt d/c home to hospice, she was transported via [facility]
== END 2024-02-21 09:54 | disposition home or self-care (01) | DRG 378 ==
LOC: ER 10:11 → PCU 12:45
PROVIDERS: Emergency Medicine; Family Medicine; Family Medicine Adult Medicine; Surgery; ADMIT Internal Medicine
PROC: 30233N1 Transfusion of Nonautologous Red Blood Cells into Peripheral Vein, Percutaneous Approach (ICD-10-PCS; principal; 2024-02-14)
PROC: 0DBL8ZX Excision of Transverse Colon, Via Natural or Artificial Opening Endoscopic, Diagnostic (ICD-10-PCS; 2024-02-15)
PROC: 0DJ08ZZ Inspection of Upper Intestinal Tract, Via Natural or Artificial Opening Endoscopic (ICD-10-PCS; 2024-02-15 12:00)
PROC: 0DBH8ZX Excision of Cecum, Via Natural or Artificial Opening Endoscopic, Diagnostic (ICD-10-PCS; 2024-02-15 12:00)
DX: K62.5 Hemorrhage of anus and rectum (principal); D62 Acute posthemorrhagic anemia; I50.32 Chronic diastolic (congestive) heart failure; I95.9 Hypotension, unspecified; Z66 Do not resuscitate; Z51.5 Encounter for palliative care; I25.10 Atherosclerotic heart disease of native coronary artery without angina pectoris; D45 Polycythemia vera; F03.90 Unspecified dementia, unspecified severity, without behavioral disturbance, psychotic disturbance, mood disturbance, and anxiety; J44.9 Chronic obstructive pulmonary disease, unspecified; E87.6 Hypokalemia; I48.91 Unspecified atrial fibrillation; K21.9 Gastro-esophageal reflux disease without esophagitis; I11.0 Hypertensive heart disease with heart failure; F17.210 Nicotine dependence, cigarettes, uncomplicated; R07.9 Chest pain, unspecified; Z74.09 Other reduced mobility; Z88.8 Allergy status to other drugs, medicaments and biological substances; Z86.711 Personal history of pulmonary embolism; Z88.1 Allergy status to other antibiotic agents; Z86.718 Personal history of other venous thrombosis and embolism; Z79.01 Long term (current) use of anticoagulants; Z88.5 Allergy status to narcotic agent; Z91.040 Latex allergy status; Z79.899 Other long term (current) drug therapy; Z79.82 Long term (current) use of aspirin; Z98.890 Other specified postprocedural states; Z95.5 Presence of coronary angioplasty implant and graft; Z90.710 Acquired absence of both cervix and uterus; Z90.721 Acquired absence of ovaries, unilateral
CPT/HCPCS: 36415; 36430; 74177; 80048; 80053; 80069; 82040; 82378; 82607; 82728; 82746; 83540; 83550; 83735; 83880; 84484; 85014; 85018; 85025; 85027; 85610; 86850; 86900; 86901; 86923; 88305; 93005; 93010; 93308; 93321; 97110; 97162; 97530; 99285-25; A9270; C9113; J2405; J2704; J3010; J3475; J3480; J7030; J7050; J7120; P9016; Q9967